=== PATIENT | male | born 1955 | race Caucasian/White ===

== ENCOUNTER 2017-09-14 03:30 | Emergency (ER) | payer OTHER ==
[~2017-09-14] VITALS: Ht 170.2 cm; Wt 70.5 kg
[~2017-09-14 03:30] MED LIST: ARTHROTEC 501 TABLET PO; ARTHROTEC 751 TABLET PO; ASPIRIN325 MG PO; ASPIRIN81 M1 PO; COUMADIN,JANTO7.5 MG PO; FLECAINIDE ACE100 MG PO; FLOVENT DISKUS1 DIS2 IH; MOTRIN800 MG PO; POTASSIUM CHLO10 ME3 PO; PROTONIX40 MG PO; VITAMIN D400 UNI1 PO; VITAMIN E400 UNI6 PO
[2017-09-14 03:57] LABS: HEMATOCRIT 42.9 % (38.0-50.0); HEMOGLOBIN 15.2 G/DL (12.5-16.6); MCH 32.2 PG (29.0-34.0); MCHC 35.4 G/DL (30.0-36.0); MCV 90.9 FL (86-99); PLATELET COUNT 231 K/uL (156-360); RBC DIS.WIDTH-CV 11.9 % (11.8-14.6); RBC DIS.WIDTH-SD 39.3 % (39-53); RED BLOOD COUNT 4.72 M/uL (4.00-5.50); WHITE BLOOD COUNT 10.5 K/uL (4.1-10.2)
[2017-09-14 04:13] LABS: ALBUMIN 4.2 g/dL (3.2-4.8); CHLORIDE 106 mEq/L (99-109); POTASSIUM 3.9 mEq/L (3.7-5.4); SODIUM 140 mEq/L (136-147)
[2017-09-14 04:16] LABS: GLUCOSE 114 mg/dL (70-99); TOTAL PROTEIN 7.1 g/dL (6.4-8.3)
[2017-09-14 04:17] LABS: TOTAL BILIRUBIN 0.4 mg/dL (0.0-1.0)
[2017-09-14 04:19] LABS: ALKALINE PHOSPHATASE 87 IU/L (3-129); CREATININE 0.9 mg/dL (0.6-1.3); GFR ESTIMATE (CALCULATED) > 59 mL/min/ (58.99-99999)
[2017-09-14 04:20] LABS: UREA NITROGEN (BUN) 7 mg/dL (9-23)
[2017-09-14 04:21] LABS: AST (GOT) 16 IU/L (2-34)
[2017-09-14 04:22] LABS: ALT (GPT) 13 IU/L (3-49)
[2017-09-14 05:26] LABS: APPEARANCE CLEAR ((CLEAR)); BILIRUBIN NEGATIVE; BLOOD NEGATIVE; COLOR YELLOW ((YELLOW)); GLUCOSE (STRIP) NEGATIVE; KETONES NEGATIVE; LEUKOCYTES TRACE; NITRITE NEGATIVE; PROTEIN (STRIP) NEGATIVE; SPECIFIC GRAVITY 1.009 (1.000-1.030); UROBILINOGEN 0.2 MG/DL (0.2-1.0)
[2017-09-14 05:36] LABS: BACTERIA NONE SEEN /HPF; EPITHELIAL CELLS NONE SEEN /HPF; HYALINE CASTS 0-5 /LPF; MUCUS 1+ /LPF; RED BLOOD CELLS 0-5 /HPF (0-5); UCUL ADDED? YES
[2017-09-14] MEDS ORDERED: LEVAQUIN750 MG PO (06:09)
[2017-09-14 06:43] VITALS: BP 114/91
== END 2017-09-14 07:17 | disposition home or self-care (01) ==
LOC: EME 03:30
PROVIDERS: Emergency Medicine Emergency Medical Services
DX: N39.0 Urinary tract infection, site not specified (principal); M54.9 Dorsalgia, unspecified; J44.9 Chronic obstructive pulmonary disease, unspecified; F17.200 Nicotine dependence, unspecified, uncomplicated; Z79.82 Long term (current) use of aspirin
CPT/HCPCS: 74176; 80053; 81003; 85027; 87086; 99281; 99284; J2270; J7040